=== PATIENT | male | born 1970 ===

== ENCOUNTER 2023-06-20 19:21 | Emergency (ER) | payer OTHER ==
[2023-06-20] MEDS ORDERED: Acetaminophen 500 MG TAB ONE (19:46)
== END 2023-06-20 20:44 | disposition home or self-care (01) ==
LOC: ERS 19:21
DX: S09.90XA Unspecified injury of head, initial encounter (principal); S00.01XA Abrasion of scalp, initial encounter; E78.00 Pure hypercholesterolemia, unspecified; I10 Essential (primary) hypertension; K21.9 Gastro-esophageal reflux disease without esophagitis; F17.210 Nicotine dependence, cigarettes, uncomplicated; V43.61XA Car passenger injured in collision with sport utility vehicle in traffic accident, initial encounter; Y99.0 Civilian activity done for income or pay; Y93.89 Activity, other specified; Z79.899 Other long term (current) drug therapy
CPT/HCPCS: 70450; 93005